=== PATIENT | male | born 1960 | race Caucasian/White ===

== ENCOUNTER 2021-04-21 09:13 | Day surgery (SDC) | payer BC ==
[~2021-04-21] VITALS: Ht 182.9 cm; Wt 99.9 kg
[~2021-04-21 09:13] MED LIST: METO25ER PO; NAPR500 PO
--- NOTE | 2021-04-21 10:41 | NUR ---
PT CAME INTO [facility] WITH ASYMPTOMATIC AFIB WITH RVR. SPOKE TO DR GUZMAN, DID EKG AND GAVE METOPROLOL 5MG TIMES ONE PER ORDER. DR GUZMAN DECIDED TO CANCEL AND SEND PT TO ER FOR FURTHER WORK UP. PT UNDERSTANDS PLAN OF CARE. AT BEDSIDE.
[2021-04-21] MEDS ORDERED: METO50ER PO (19:02)
[2021-04-21] MEDS ORDERED: DILT120 PO (19:54)
== END 2021-04-21 22:48 | disposition home or self-care (01) ==
LOC: ORSCMMR 09:13 → ORD 10:30 → ORSCMMR 22:48
DX: Z12.11 Encounter for screening for malignant neoplasm of colon (principal); Z86.010 Personal history of colon polyps; Z53.9 Procedure and treatment not carried out, unspecified reason
CPT/HCPCS: 93005; 93010; J7120

== ENCOUNTER 2022-06-14 08:06 | Day surgery (SDC) | payer BC ==
[~2022-06-14] VITALS: Ht 182.9 cm; Wt 98.6 kg
[~2022-06-14 08:06] MED LIST changes: +DILT120 PO; +METO50ER PO
--- NOTE | 2022-06-14 09:14 | NUR ---
Ambulatory in Day Surgery History, Chart, Medications and Allergies reviewed before start of procedure.Patient confirms NPO status and agrees with scheduled surgery. Patient states colon prep results clear.Lungs clear T/O to Auscultation. Patient States Post-Procedure ride home has been arranged WITH GIRLFRIEND. PT HEART RATE/RYTHM AFIB 143-187BPM. PHYSICIAN NOTIFED, GAVE OKAY TO CONTINUE WITH IV START AND PREOP.
--- NOTE | 2022-06-14 09:37 | NUR ---
PROCEDURE CANCELLED DUE TO HR, PER DR PALACIOS. ORDERS RECEIVED AND INPUT INTO [facility].
--- NOTE | 2022-06-14 09:52 | NUR ---
DR PALACIOS ASSESSED PT AND OKAYED PT TO BE DISCHARGED. PT INSTRUCTED TO FOLLOW UP WITH PCP AND IF S/S OF CHEST PAIN OR HEART PALPITATIONS OR RATE INCREASE OCCUR TO FOLLOW UP WITH ER. PT HR IS NOW 80-90. DR PALACIOS EDUCATED PT ON DIZZINESS AND CHANGING POSITIONS SLOWLY DUE TO EFFECTS OF METOPROLOL.
== END 2022-06-14 22:53 | disposition home or self-care (01) ==
LOC: ORSCMMR 08:06 → ORD 09:00 → ORSCMMR 22:53
DX: Z86.010 Personal history of colon polyps (principal); Z53.9 Procedure and treatment not carried out, unspecified reason
CPT/HCPCS: A9270; J7120